=== PATIENT | female | born 1940 | race Caucasian/White ===

== ENCOUNTER 2018-08-20 15:02 | Inpatient (IN) | payer MEDICARE, BC ==
[~2018-08-20 15:02] MED LIST: Midazolam 1 MG/ML 2 ML SDV ONE; fentaNYL 100 MCG/2 ML SDV ONE
[2018-08-20] MEDS ORDERED: Lidocaine 1% with EPINEPHrine 1:100,000 20 ML MDV ONE (15:06)
[2018-08-20] MEDS ORDERED: fentaNYL 100 MCG/2 ML SDV IVPUSH ONE ×2 (15:32→15:34)
[2018-08-20] MEDS ORDERED: Midazolam 1 MG/ML 2 ML SDV IVPUSH ONE ×2 (15:32→15:34)
[2018-08-20] MEDS ORDERED: Lidocaine 1% with EPINEPHrine 1:100,000 20 ML MDV INJECT ONE (15:35)
[2018-08-20] MEDS ORDERED: Sodium Chloride 0.9% 1,000 ML IV ONE (15:35)
--- NOTE | 2018-08-20 16:02 | PCM.HP ---
H&P History of Present Illness - General Date of Service: 08/20/18 Source of Information: Patient, Provider - History of Present Illness Initial Comments - Free Text/Narative: Patient is a 78 y/o lady with metastatic colon cancer who was seen at the for PortACath placement. She was found to have a postoperative pneumothorax and was brought emergently to the [facility] emergency department. She reported some neck pain and some difficulty breathing. left chest Pain Score (Numeric/FACES): 4 - Related Data Allergies/Adverse Reactions: Allergies Allergy/AdvReac Type Severity Reaction Status Date / Time No Known Allergies Allergy Verified 08/20/18 15:18 Home Medications: Home Meds Cephalexin [Keflex] 0 mg PO ASDIRECTED 08/20/18 [History] Docusate Sodium 0 mg PO DAILY 08/20/18 [History] Levothyroxine [Synthroid] 0 mcg PO DAILY 08/20/18 [History] Losartan [Cozaar] 0 mg PO DAILY 08/20/18 [History] Past Medical History Cardiovascular History: Reports: Hypertension Other Respiratory History: past smoker, quit 12 years ago (22.5 year history) Gastrointestinal History: Reports: Other (See Below) Other Gastrointestinal History: colon cancer with mets to liver [employer] History: Reports: Endocrine/Metabolic History: Reports: Hypothyroidism Oncologic (Cancer) History: Reports: Colon, Liver, Metastatic - Past Surgical History Other Respiratory Surgeries/Procedures: pneumothorax GI Surgical History: Reports: Colonoscopy, Colostomy, Other (See Below) Other GI Surgeries/Procedures: laparotomy Social & Family History - Family History Cardiac: Reports: CAD Neurological: Reports: CVA Endocrine/Metabolic: Reports: Diabetes, Type I Oncologic: Reports: Bladder - Tobacco Use Smoking Status *Q: Former Smoker Used Tobacco, but Quit: No - Caffeine Use Caffeine Use: Reports: Coffee - Recreational Drug Use Recreational Drug Use: No H&P Review of Systems - Review of Systems: Review Of Systems: See Below General: Reports: No Symptoms HEENT: Reports: No Symptoms Pulmonary: Reports: Shortness of Breath Cardiovascular: Reports: No Symptoms Gastrointestinal: Reports: No Symptoms Genitourinary: Reports: No Symptoms Musculoskeletal: Reports: No Symptoms Skin: Reports: No Symptoms Psychiatric: Reports: No Symptoms Neurological: Reports: No Symptoms Exam - Exam Exam: See Below - Vital Signs Vital Signs: Last Vital Signs Temp 36.6 C 08/20/18 15:05 Pulse 107 H 08/20/18 15:30 Resp 31 H 08/20/18 15:30 BP 153/85 H 08/20/18 15:30 Pulse Ox 100 08/20/18 15:30 Weight: 58.003 kg - Exam Quality Assessment: Supplemental Oxygen General: Alert, Oriented HEENT: Conjunctiva Clear, EOMI Neck: Supple Lungs: Decreased Breath Sounds Cardiovascular: Regular Rate, Regular Rhythm GI/Abdominal Exam: Soft Extremities: Normal Inspection Neurological: Cranial Nerves Intact Neuro Extensive - Mental Status: Alert, Normal Mood/Affect *Q Meaningful Use (ADM) - VTE Risk Assess *Q Each Risk Factor Represents 1 Point: Minor Surgery Planned Total Score 1 Point Risk Factors: 1 Each Risk Factor Represents 3 Points: Age 75 Years or Greater Total Score 3 Point Risk Factors: 3 - Problem List (1) Pneumothorax on right SNOMED Code(s): 812775868 ICD Code: J93.9 - PNEUMOTHORAX, UNSPECIFIED Status: Acute Problem List Initiated/Reviewed/Updated: Yes Orders Last 24hrs: Active Orders 24 hr Category Date Time Status Chest 1V Frontal [CR] Stat Exams 08/20/18 15:32 Taken Sodium Chloride 0.9% [Normal Saline] 1,000 ml Med 08/20/18 15:35 Active IV ONETIME Medication Orders Sodium Chloride (Normal Saline) 1,000 mls @ 999 mls/hr IV ONETIME ONE Stop: 08/20/18 16:35 Last Admin: 08/20/18 15:52 Dose: 999 mls/hr Assessment/Plan Comment:: 78 y/o lady with iatrogenic pneumothorax after placement of PortACath. Right sided chest tube placed with good resolution of the pneumothorax - will admit for care of chest tube - IV dilaudid with norco and ibuprofen - regular diet - continue home medications - daily chest x-ray Radha John MD General surgery
--- NOTE | 2018-08-20 16:06 | PCM.OPNOTE ---
- General Post-Op/Procedure Note Date of Surgery/Procedure: 08/20/18 Operative Procedure(s): right tube thoracostomy Findings: large right pneumothorax Pre Op Diagnosis: right pneumothorax Post-Op Diagnosis: right pneumothorax Anesthesia Technique: Moderate Sedation Primary Surgeon: Radha John EBL in mLs: 30 Drain/Tube Comments:: right chest tube Complications: none apparent Condition: Good
[2018-08-20] MEDS ORDERED: Acetaminophen 325 MG Tab PO PRN (16:08)
[2018-08-20] MEDS ORDERED: Ondansetron 4 MG Tab.DIS PO PRN (16:08)
--- NOTE | 2018-08-20 16:22 | PCM.PRNOTE ---
- Free Text/Narrative Note: Date: 08/20/18 Procedure: right chest tube thoracostomy Pre-procedure diagnosis: right pneumothorax Post-procedure diagnosis: same Surgeon: Radha John MD Anesthesia: moderate sedation Blood loss: 30cc Indication: 78 y/o female with right iatrogenic pneumothorax. Risks of bleeding and infection explained, written consent obtained. Description: Moderate sedation was administered. The patient was prepped and draped in standard fashion. The area over the 5th approximate intercostal space was anesthetized with local 1% lidocaine with epinephrine. An incision was made and deepened to the level of the intercostal muscles. The pleural cavity was entered bluntly and confirmed with a kumar of air. A 28F chest tube was inserted and secured to the skin with a 0 silk suture. An occlusive dressing was applied. An immediate chest x-ray was done, confirming resolution of the pneumothorax with excellent positioning of the chest tube. The patient tolerated the procedure well. Radha John MD General Surgery
[2018-08-20] MEDS: HYDROmorphone 1 MG/ML Syringe IVPUSH PRN ×2 (16:35→20:05)
[2018-08-20] MEDS: Ibuprofen 600 MG Tab PO PRN (16:35)
--- NOTE | 2018-08-20 16:36 | CR ---
Chest: Frontal view of the chest was obtained. Comparison: No prior chest x-ray. Right sided chest tube is seen. Slight lucency is identified along the right lateral chest suspicious for small pneumothorax. Hiatal hernia is noted. Heart size is normal. Tortuous thoracic aorta is seen. Left-sided infusion port is seen. Mild right basilar atelectasis is noted. Bony structures are grossly intact. Impression: 1. Right-sided chest tube. 2. Findings suspicious for small right sided pneumothorax. 3. Other incidental findings. Diagnostic code #3
[2018-08-20] MEDS: Acetaminophen/HYDROcodone 325-5 MG Tab PO PRN (20:07)
[2018-08-20] MEDS: Docusate Sodium 100 MG Cap PO SCH (20:53)
[2018-08-20] MEDS: Heparin Sodium 5,000 Units/ML Vial SUBCUT SCH (20:59)
[2018-08-21] MEDS: Acetaminophen/HYDROcodone 325-5 MG Tab PO PRN ×4 (03:01→20:34)
[2018-08-21] MEDS: Ibuprofen 600 MG Tab PO PRN ×3 (03:02→23:02)
[2018-08-21] MEDS: HYDROmorphone 1 MG/ML Syringe IVPUSH PRN ×4 (03:03→18:01)
[2018-08-21] MEDS: Heparin Sodium 5,000 Units/ML Vial SUBCUT SCH ×3 (06:46→21:06)
[2018-08-21] MEDS: Levothyroxine 125 MCG Tab PO SCH (06:49)
[2018-08-21] MEDS: Losartan 25 MG Tab PO SCH (09:33)
[2018-08-21] MEDS: Docusate Sodium 100 MG Cap PO SCH ×2 (09:33→20:34)
--- NOTE | 2018-08-21 10:07 | CR ---
Chest: Portable view of the chest was obtained. Comparison: Prior chest x-ray of 08/20/18. Right-sided chest tube is seen. No definite pneumothorax is appreciated. Slight atelectasis is noted within the left base. Lungs otherwise are clear. Hiatal hernia is noted. Upper mediastinum within normal limits. Left-sided infusion port is seen. Pressure: 1. Right-sided chest tube. No definite pneumothorax. 2. Left basilar atelectasis and other incidental findings. Diagnostic code #3
--- NOTE | 2018-08-21 10:12 | PCM.SURGPN ---
- General Info Date of Service: 08/21/18 POD#: 1 Functional Status: Reports: Pain Controlled, Tolerating Diet - Patient Data Vitals - Most Recent: Last Vital Signs Temp 36.4 C 08/21/18 03:13 Pulse 96 08/21/18 07:51 Resp 16 08/21/18 03:13 BP 128/79 08/21/18 09:33 Pulse Ox 98 08/21/18 08:41 Weight - Most Recent: 60.146 kg I&O - Last 24 Hours: Intake & Output 08/20/18 08/21/18 08/21/18 22:59 06:59 14:59 Intake Total 240 900 Output Total 827 Balance 240 73 Lab Results Last 24 Hrs: Laboratory Results - last 24 hr 08/20/18 08/21/18 Range/Units 18:05 05:45 WBC 15.26 H 13.10 H (3.98-10.04) K/mm3 RBC 2.60 L 2.64 L (3.98-5.22) M/mm3 Hgb 7.9 L 8.0 L (11.2-15.7) gm/L Hct 25.3 L 26.1 L (34.1-44.9) % MCV 97.3 H 98.9 H (79.4-94.8) fl MCH 30.4 30.3 (25.6-32.2) pg MCHC 31.2 L 30.7 L (32.2-35.5) g/dl RDW Std Deviation 52.4 H 54.1 H (36.4-46.3) fL Plt Count 325 328 (182-369) K/mm3 MPV 10.6 11.3 (9.4-12.3) fl Neut % (Auto) 83.5 H 75.7 H (34.0-71.1) % Lymph % (Auto) 6.5 L 12.7 L (19.3-51.7) % [place] % (Auto) 9.6 11.1 (4.7-12.5) % Eos % (Auto) 0 L 0.1 L (0.7-5.8) Baso % (Auto) 0.2 0.2 (0.1-1.2) % Neut # (Auto) 12.75 H 9.92 H (1.56-6.13) K/mm3 Lymph # (Auto) 0.99 L 1.67 (1.18-3.74) K/mm3 [place] # (Auto) 1.46 H 1.45 H (0.24-0.36) K/mm3 Eos # (Auto) 0.00 L 0.01 L (0.04-0.36) K/mm3 Baso # (Auto) 0.03 0.02 (0.01-0.08) K/mm3 Manual Slide Review Abnormal smear Med Orders - Current: Current Medications Acetaminophen (Tylenol) 650 mg PO Q4H PRN PRN Reason: Pain (Mild 1-3)/fever Hydrocodone Bitart/Acetaminophen ([place] 325-5 Mg) 1 tab PO Q4H PRN PRN Reason: Pain (severe 7-10) Last Admin: 08/21/18 09:33 Dose: 1 tab Docusate Sodium (Colace) 100 mg PO BID [facility] Last Admin: 08/21/18 09:33 Dose: 100 mg Heparin Sodium (Porcine) (Heparin Sodium) 5,000 units SUBCUT Q8H [facility] Last Admin: 08/21/18 06:46 Dose: 5,000 units Hydromorphone HCl (Dilaudid) 0.25 mg IVPUSH Q2H PRN PRN Reason: Breakthrough Pain Last Admin: 08/21/18 09:34 Dose: 0.25 mg Ibuprofen (Motrin) 600 mg PO Q6H PRN PRN Reason: Pain (moderate 4-6) Last Admin: 08/21/18 03:02 Dose: 600 mg Levothyroxine Sodium (Levothyroxine) 125 mcg PO ACBREAKFAST [facility] Last Admin: 08/21/18 06:49 Dose: 125 mcg Losartan Potassium (Cozaar) 50 mg PO DAILY [facility] Last Admin: 08/21/18 09:33 Dose: 50 mg Ondansetron HCl (Zofran Odt) 4 mg PO Q6H PRN PRN Reason: nausea, able to take PO Last Admin: 08/20/18 16:35 Dose: 4 mg Discontinued Medications Fentanyl (Sublimaze) 25 mcg IVPUSH ONETIME ONE Stop: 08/20/18 15:33 Last Admin: 08/20/18 15:51 Dose: 25 mcg Fentanyl (Sublimaze) 25 mcg IVPUSH ONETIME ONE Stop: 08/20/18 15:35 Last Admin: 08/20/18 15:52 Dose: 25 mcg Fentanyl (Sublimaze) Confirm Administered Dose 100 mcg .ROUTE .STK-MED ONE Stop: 08/20/18 14:59 Last Admin: 08/21/18 07:54 Dose: Not Given Sodium Chloride (Normal Saline) 1,000 mls @ 999 mls/hr IV ONETIME ONE Stop: 08/20/18 16:35 Last Admin: 08/20/18 15:52 Dose: 999 mls/hr Lidocaine/Epinephrine (Xylocaine 1% With Epinephrine 1:100,000) Confirm Administered Dose 40 ml .ROUTE .STK-MED ONE Stop: 08/20/18 15:07 Last Admin: 08/20/18 15:53 Dose: Not Given Lidocaine/Epinephrine (Xylocaine 1% With Epinephrine 1:100,000) 20 ml INJECT ONETIME ONE Stop: 08/20/18 15:36 Last Admin: 08/20/18 15:53 Dose: 20 ml Midazolam HCl (Versed 1 Mg/Ml) 1 mg IVPUSH ONETIME ONE Stop: 08/20/18 15:33 Last Admin: 08/20/18 15:50 Dose: 1 mg Midazolam HCl (Versed 1 Mg/Ml) 1 mg IVPUSH ONETIME ONE Stop: 08/20/18 15:35 Last Admin: 08/20/18 15:51 Dose: 1 mg Midazolam HCl (Versed 1 Mg/Ml) Confirm Administered Dose 6 mg .ROUTE .STK-MED ONE Stop: 08/20/18 14:59 Last Admin: 08/21/18 07:54 Dose: Not Given - Exam Wound/Incisions: Dressing Dry and Intact Quality Assessment: Supplemental Oxygen HEENT: Pupils Equal, EOMI Lungs: Normal Respiratory Effort - Problem List & Annotations (1) Pneumothorax on right SNOMED Code(s): 734756837 Code(s): J93.9 - PNEUMOTHORAX, UNSPECIFIED Status: Acute Current Visit: No - Problem List Review Problem List Initiated/Reviewed/Updated: Yes - My Orders Last 24 Hours: Active Orders 24 hr Category Date Time Status Activity as Tolerated [RC] QSHIFT Care 08/21/18 03:32 Active Antiembolic Devices [RC] 09,21 Care 08/20/18 16:14 Active Incentive Breathing [RT Incentive Spirometry] [RC] Care 08/21/18 09:04 Active Q2HWA Intake and Output [RC] 04,16 Care 08/20/18 16:10 Active Oxygen Therapy [RC] PRN Care 08/20/18 16:08 Active VTE/DVT Education [RC] DAILY Care 08/20/18 16:08 Active Regular Diet [DIET] Diet 08/20/18 Dinner Active Chest 1V Frontal [CR] DAILY Exams 08/22/18 07:15 Ordered Chest 1V Frontal [CR] DAILY Exams 08/23/18 07:15 Ordered Chest 1V Frontal [CR] DAILY Exams 08/24/18 07:15 Ordered Chest 1V Frontal [CR] DAILY Exams 08/25/18 07:15 Ordered Acetaminophen [Tylenol] Med 08/20/18 16:08 Active 650 mg PO Q4H PRN Acetaminophen/HYDROcodone [Gypsy 325-5 MG] Med 08/20/18 16:08 Active 1 tab PO Q4H PRN Docusate Sodium [Colace] Med 08/20/18 21:00 Active 100 mg PO BID HYDROmorphone [Dilaudid] Med 08/20/18 16:08 Active 0.25 mg IVPUSH Q2H PRN Heparin Sodium Med 08/20/18 22:00 Active 5,000 units SUBCUT Q8H Ibuprofen [Motrin] Med 08/20/18 16:08 Active 600 mg PO Q6H PRN Levothyroxine Med 08/21/18 06:00 Active 125 mcg PO ACBREAKFAST Losartan [Cozaar] Med 08/21/18 09:00 Active 50 mg PO DAILY Ondansetron [Zofran ODT] Med 08/20/18 16:08 Active 4 mg PO Q6H PRN Sequential Compression Device [OM.PC] Per Unit Routine Oth 08/20/18 16:10 Ordered Resuscitation Status Routine Resus Stat 08/20/18 20:16 Ordered Medication Orders Acetaminophen (Tylenol) 650 mg PO Q4H PRN PRN Reason: Pain (Mild 1-3)/fever Hydrocodone Bitart/Acetaminophen ([place] 325-5 Mg) 1 tab PO Q4H PRN PRN Reason: Pain (severe 7-10) Last Admin: 08/21/18 09:33 Dose: 1 tab Admin: 08/21/18 03:01 Dose: 1 tab Admin: 08/20/18 20:07 Dose: 1 tab Docusate Sodium (Colace) 100 mg PO BID [facility] Last Admin: 08/21/18 09:33 Dose: 100 mg Admin: 08/20/18 20:53 Dose: 100 mg Heparin Sodium (Porcine) (Heparin Sodium) 5,000 units SUBCUT Q8H [facility] Last Admin: 08/21/18 06:46 Dose: 5,000 units Admin: 08/20/18 20:59 Dose: 5,000 units Hydromorphone HCl (Dilaudid) 0.25 mg IVPUSH Q2H PRN PRN Reason: Breakthrough Pain Last Admin: 08/21/18 09:34 Dose: 0.25 mg Admin: 08/21/18 03:03 Dose: 0.25 mg Admin: 08/20/18 20:05 Dose: 0.25 mg Admin: 08/20/18 16:35 Dose: 0.25 mg Ibuprofen (Motrin) 600 mg PO Q6H PRN PRN Reason: Pain (moderate 4-6) Last Admin: 08/21/18 03:02 Dose: 600 mg Admin: 08/20/18 16:35 Dose: 600 mg Levothyroxine Sodium (Levothyroxine) 125 mcg PO ACBREAKFAST [facility] Last Admin: 08/21/18 06:49 Dose: 125 mcg Losartan Potassium (Cozaar) 50 mg PO DAILY [facility] Last Admin: 08/21/18 09:33 Dose: 50 mg Ondansetron HCl (Zofran Odt) 4 mg PO Q6H PRN PRN Reason: nausea, able to take PO Last Admin: 08/20/18 16:35 Dose: 4 mg - Assessment Assessment (Free Text/Narrative):: 78 y/o lady with iatrogenic pneumothorax. continued intermittent air leak - Plan Plan (Free Text/Narrative):: - continue current pain regimen - encourage good pulmonary hygiene with deep breathing and coughing. Will give incentive spirometer - regular diet - continue home medications - daily chest x-ray Radha John MD General surgery
[2018-08-22] MEDS: Levothyroxine 125 MCG Tab PO SCH (05:07)
[2018-08-22] MEDS: Acetaminophen/HYDROcodone 325-5 MG Tab PO PRN ×2 (05:07→21:12)
[2018-08-22] MEDS: Heparin Sodium 5,000 Units/ML Vial SUBCUT SCH ×3 (05:08→21:12)
[2018-08-22] MEDS: Losartan 25 MG Tab PO SCH (08:33)
[2018-08-22] MEDS: Ibuprofen 600 MG Tab PO PRN ×2 (08:34→15:15)
[2018-08-22] MEDS: Docusate Sodium 100 MG Cap PO SCH ×2 (08:35→21:12)
--- NOTE | 2018-08-22 09:43 | CR ---
Chest: Portable view of the chest was obtained. Comparison: Prior chest x-ray of 08/21/18. Right-sided chest tube is again noted. No definite pneumothorax is seen. Left-sided infusion port is seen. Heart size appears within normal limits for portable technique. Scattered areas of atelectasis are seen within both sides of the chest. Hiatal hernia is noted causing increased density behind the heart. Bony structures are grossly intact. Impression: 1. Scattered areas of atelectasis within both lungs. 2. Right-sided chest tube with no pneumothorax being seen. 3. Other incidental findings. Diagnostic code #3
[2018-08-22] MEDS ORDERED: Polyethylene Glycol 3350 Powder 17 GM Packet PO PRN (10:27)
--- NOTE | 2018-08-22 10:32 | PCM.SURGPN ---
- General Info Date of Service: 08/22/18 Functional Status: Reports: Pain Controlled, Tolerating Diet, Ambulating, Incentive Spirometry, Other (reports less stool output in ostomy) - Patient Data Vitals - Most Recent: Last Vital Signs Temp 36.6 C 08/22/18 07:49 Pulse 87 08/22/18 08:29 Resp 16 08/22/18 07:49 BP 128/71 08/22/18 08:33 Pulse Ox 92 L 08/22/18 08:29 Weight - Most Recent: 60.963 kg I&O - Last 24 Hours: Intake & Output 08/21/18 08/22/18 08/22/18 22:59 06:59 14:59 Intake Total 1000 350 Output Total 900 715 Balance 100 -365 Med Orders - Current: Current Medications Acetaminophen (Tylenol) 650 mg PO Q4H PRN PRN Reason: Pain (Mild 1-3)/fever Hydrocodone Bitart/Acetaminophen ([place] 325-5 Mg) 1 tab PO Q4H PRN PRN Reason: Pain (severe 7-10) Last Admin: 08/22/18 05:07 Dose: 1 tab Docusate Sodium (Colace) 100 mg PO BID [facility] Last Admin: 08/22/18 08:35 Dose: 100 mg Heparin Sodium (Porcine) (Heparin Sodium) 5,000 units SUBCUT Q8H [facility] Last Admin: 08/22/18 05:08 Dose: 5,000 units Hydromorphone HCl (Dilaudid) 0.25 mg IVPUSH Q2H PRN PRN Reason: Breakthrough Pain Last Admin: 08/21/18 18:01 Dose: 0.25 mg Ibuprofen (Motrin) 600 mg PO Q6H PRN PRN Reason: Pain (moderate 4-6) Last Admin: 08/22/18 08:34 Dose: 600 mg Levothyroxine Sodium (Levothyroxine) 125 mcg PO ACBREAKFAST [facility] Last Admin: 08/22/18 05:07 Dose: 125 mcg Losartan Potassium (Cozaar) 50 mg PO DAILY [facility] Last Admin: 08/22/18 08:33 Dose: 50 mg Ondansetron HCl (Zofran Odt) 4 mg PO Q6H PRN PRN Reason: nausea, able to take PO Last Admin: 08/20/18 16:35 Dose: 4 mg Discontinued Medications Fentanyl (Sublimaze) 25 mcg IVPUSH ONETIME ONE Stop: 08/20/18 15:33 Last Admin: 08/20/18 15:51 Dose: 25 mcg Fentanyl (Sublimaze) 25 mcg IVPUSH ONETIME ONE Stop: 08/20/18 15:35 Last Admin: 08/20/18 15:52 Dose: 25 mcg Fentanyl (Sublimaze) Confirm Administered Dose 100 mcg .ROUTE .STK-MED ONE Stop: 08/20/18 14:59 Last Admin: 08/21/18 07:54 Dose: Not Given Sodium Chloride (Normal Saline) 1,000 mls @ 999 mls/hr IV ONETIME ONE Stop: 08/20/18 16:35 Last Admin: 08/20/18 15:52 Dose: 999 mls/hr Lidocaine/Epinephrine (Xylocaine 1% With Epinephrine 1:100,000) Confirm Administered Dose 40 ml .ROUTE .STK-MED ONE Stop: 08/20/18 15:07 Last Admin: 08/20/18 15:53 Dose: Not Given Lidocaine/Epinephrine (Xylocaine 1% With Epinephrine 1:100,000) 20 ml INJECT ONETIME ONE Stop: 08/20/18 15:36 Last Admin: 08/20/18 15:53 Dose: 20 ml Midazolam HCl (Versed 1 Mg/Ml) 1 mg IVPUSH ONETIME ONE Stop: 08/20/18 15:33 Last Admin: 08/20/18 15:50 Dose: 1 mg Midazolam HCl (Versed 1 Mg/Ml) 1 mg IVPUSH ONETIME ONE Stop: 08/20/18 15:35 Last Admin: 08/20/18 15:51 Dose: 1 mg Midazolam HCl (Versed 1 Mg/Ml) Confirm Administered Dose 6 mg .ROUTE .STK-MED ONE Stop: 08/20/18 14:59 Last Admin: 08/21/18 07:54 Dose: Not Given - Exam Wound/Incisions: Dressing Dry and Intact, No Drainage General: Alert, Oriented Neck: Supple Lungs: Normal Respiratory Effort, Other (chest tube with minimal drainage, intermittent air leak) - Problem List & Annotations (1) Pneumothorax on right SNOMED Code(s): 865514872 Code(s): J93.9 - PNEUMOTHORAX, UNSPECIFIED Status: Acute Current Visit: No - Problem List Review Problem List Initiated/Reviewed/Updated: Yes - My Orders Last 24 Hours: Active Orders 24 hr Category Date Time Status Chest Tube Management [RC] ASDIRECTED Care 08/22/18 10:27 Ordered Communication Order [RC] DAILY Care 08/21/18 15:34 Active Chest 1V Frontal [CR] DAILY Exams 08/23/18 07:15 Ordered Chest 1V Frontal [CR] DAILY Exams 08/24/18 07:15 Ordered Chest 1V Frontal [CR] DAILY Exams 08/25/18 07:15 Ordered CBC WITH AUTO DIFF [HEME] AM Lab 08/23/18 05:11 Ordered Polyethylene Glycol 3350 [MiraLAX] Med 08/22/18 10:27 Ordered 17 gm PO BEDTIME PRN Medication Orders Acetaminophen (Tylenol) 650 mg PO Q4H PRN PRN Reason: Pain (Mild 1-3)/fever Hydrocodone Bitart/Acetaminophen ([place] 325-5 Mg) 1 tab PO Q4H PRN PRN Reason: Pain (severe 7-10) Last Admin: 08/22/18 05:07 Dose: 1 tab Admin: 08/21/18 20:34 Dose: 1 tab Admin: 08/21/18 15:07 Dose: 1 tab Admin: 08/21/18 09:33 Dose: 1 tab Admin: 08/21/18 03:01 Dose: 1 tab Admin: 08/20/18 20:07 Dose: 1 tab Docusate Sodium (Colace) 100 mg PO BID [facility] Last Admin: 08/22/18 08:35 Dose: 100 mg Admin: 08/21/18 20:34 Dose: 100 mg Admin: 08/21/18 09:33 Dose: 100 mg Admin: 08/20/18 20:53 Dose: 100 mg Heparin Sodium (Porcine) (Heparin Sodium) 5,000 units SUBCUT Q8H [facility] Last Admin: 08/22/18 05:08 Dose: 5,000 units Admin: 08/21/18 21:06 Dose: 5,000 units Admin: 08/21/18 15:07 Dose: 5,000 units Admin: 08/21/18 06:46 Dose: 5,000 units Admin: 08/20/18 20:59 Dose: 5,000 units Hydromorphone HCl (Dilaudid) 0.25 mg IVPUSH Q2H PRN PRN Reason: Breakthrough Pain Last Admin: 08/21/18 18:01 Dose: 0.25 mg Admin: 08/21/18 15:07 Dose: 0.25 mg Admin: 08/21/18 09:34 Dose: 0.25 mg Admin: 08/21/18 03:03 Dose: 0.25 mg Admin: 08/20/18 20:05 Dose: 0.25 mg Admin: 08/20/18 16:35 Dose: 0.25 mg Ibuprofen (Motrin) 600 mg PO Q6H PRN PRN Reason: Pain (moderate 4-6) Last Admin: 08/22/18 08:34 Dose: 600 mg Admin: 08/21/18 23:02 Dose: 600 mg Admin: 08/21/18 18:00 Dose: 600 mg Admin: 08/21/18 03:02 Dose: 600 mg Admin: 08/20/18 16:35 Dose: 600 mg Levothyroxine Sodium (Levothyroxine) 125 mcg PO ACBREAKFAST [facility] Last Admin: 08/22/18 05:07 Dose: 125 mcg Admin: 08/21/18 06:49 Dose: 125 mcg Losartan Potassium (Cozaar) 50 mg PO DAILY [facility] Last Admin: 08/22/18 08:33 Dose: 50 mg Admin: 08/21/18 09:33 Dose: 50 mg Ondansetron HCl (Zofran Odt) 4 mg PO Q6H PRN PRN Reason: nausea, able to take PO Last Admin: 08/20/18 16:35 Dose: 4 mg - Assessment Assessment (Free Text/Narrative):: 78 y/o lady with iatrogenic pneumothorax, doing well. - Plan Plan (Free Text/Narrative):: - continue daily chest x-ray - will check CBC for hg level - encourage ambulation and incentive spirometry - may give miralax PRN for increased constipation symptoms - continue chest tube to suction until air leak resolves Radha John MD General surgery
[2018-08-23] MEDS: Heparin Sodium 5,000 Units/ML Vial SUBCUT SCH ×3 (06:48→21:19)
[2018-08-23] MEDS: Acetaminophen/HYDROcodone 325-5 MG Tab PO PRN ×3 (06:49→19:35)
[2018-08-23] MEDS: Levothyroxine 125 MCG Tab PO SCH (06:49)
[2018-08-23] MEDS: Losartan 25 MG Tab PO SCH (08:07)
[2018-08-23] MEDS: Docusate Sodium 100 MG Cap PO SCH ×2 (08:08→21:20)
--- NOTE | 2018-08-23 08:12 | CR ---
Chest: Portable view of the chest was obtained. Comparison: Previous chest x-ray of 08/22/18. Slight atelectasis is seen within both lung bases. Minimal atelectasis is seen within left midlung. Right sided chest tube is seen. No pneumothorax is seen. Left-sided infusion port is noted. Bony structures are osteopenic. Mild scoliosis is noted. Hiatal hernia is noted. Impression: 1. Mild areas of atelectasis. Right-sided chest tube. No pneumothorax is seen. No acute abnormality is seen. Diagnostic code #3
[2018-08-23] MEDS: Ibuprofen 600 MG Tab PO PRN ×3 (09:44→23:53)
--- NOTE | 2018-08-23 09:52 | PCM.SURGPN ---
- General Info Date of Service: 08/23/18 Functional Status: Reports: Pain Controlled, Tolerating Diet - Patient Data Vitals - Most Recent: Last Vital Signs Temp 37.0 C 08/23/18 07:43 Pulse 96 08/23/18 07:43 Resp 12 08/23/18 07:43 BP 130/92 H 08/23/18 08:07 Pulse Ox 97 08/23/18 07:43 Weight - Most Recent: 60.736 kg I&O - Last 24 Hours: Intake & Output 08/22/18 08/23/18 08/23/18 22:59 06:59 14:59 Intake Total 1480 1200 Output Total 570 900 Balance 910 300 Lab Results Last 24 Hrs: Laboratory Results - last 24 hr 08/22/18 08/23/18 Range/Units 16:09 05:53 WBC 11.87 H 13.53 H (3.98-10.04) K/mm3 RBC 2.71 L 2.67 L (3.98-5.22) M/mm3 Hgb 8.1 L 8.0 L (11.2-15.7) gm/L Hct 26.8 L 26.0 L (34.1-44.9) % MCV 98.9 H 97.4 H (79.4-94.8) fl MCH 29.9 30.0 (25.6-32.2) pg MCHC 30.2 L 30.8 L (32.2-35.5) g/dl RDW Std Deviation 54.2 H 52.9 H (36.4-46.3) fL Plt Count 339 347 (182-369) K/mm3 MPV 10.6 11.0 (9.4-12.3) fl Neut % (Auto) 73.5 H 78.7 H (34.0-71.1) % Lymph % (Auto) 13.2 L 10.4 L (19.3-51.7) % [place] % (Auto) 12.6 H 10.4 (4.7-12.5) % Eos % (Auto) 0.3 L 0.2 L (0.7-5.8) Baso % (Auto) 0.2 0.1 (0.1-1.2) % Neut # (Auto) 8.74 H 10.64 H (1.56-6.13) K/mm3 Lymph # (Auto) 1.57 1.41 (1.18-3.74) K/mm3 [place] # (Auto) 1.49 H 1.41 H (0.24-0.36) K/mm3 Eos # (Auto) 0.03 L 0.03 L (0.04-0.36) K/mm3 Baso # (Auto) 0.02 0.01 (0.01-0.08) K/mm3 Med Orders - Current: Current Medications Acetaminophen (Tylenol) 650 mg PO Q4H PRN PRN Reason: Pain (Mild 1-3)/fever Hydrocodone Bitart/Acetaminophen ([place] 325-5 Mg) 1 tab PO Q4H PRN PRN Reason: Pain (severe 7-10) Last Admin: 08/23/18 06:49 Dose: 1 tab Docusate Sodium (Colace) 100 mg PO BID [facility] Last Admin: 08/23/18 08:08 Dose: 100 mg Heparin Sodium (Porcine) (Heparin Sodium) 5,000 units SUBCUT Q8H [facility] Last Admin: 08/23/18 06:48 Dose: 5,000 units Hydromorphone HCl (Dilaudid) 0.25 mg IVPUSH Q2H PRN PRN Reason: Breakthrough Pain Last Admin: 08/21/18 18:01 Dose: 0.25 mg Ibuprofen (Motrin) 600 mg PO Q6H PRN PRN Reason: Pain (moderate 4-6) Last Admin: 08/23/18 09:44 Dose: 600 mg Levothyroxine Sodium (Levothyroxine) 125 mcg PO ACBREAKFAST [facility] Last Admin: 08/23/18 06:49 Dose: 125 mcg Losartan Potassium (Cozaar) 50 mg PO DAILY [facility] Last Admin: 08/23/18 08:07 Dose: 50 mg Ondansetron HCl (Zofran Odt) 4 mg PO Q6H PRN PRN Reason: nausea, able to take PO Last Admin: 08/20/18 16:35 Dose: 4 mg Polyethylene Glycol (Miralax) 17 gm PO BEDTIME PRN PRN Reason: Constipation Last Admin: 08/22/18 15:15 Dose: 17 gm Discontinued Medications Fentanyl (Sublimaze) 25 mcg IVPUSH ONETIME ONE Stop: 08/20/18 15:33 Last Admin: 08/20/18 15:51 Dose: 25 mcg Fentanyl (Sublimaze) 25 mcg IVPUSH ONETIME ONE Stop: 08/20/18 15:35 Last Admin: 08/20/18 15:52 Dose: 25 mcg Fentanyl (Sublimaze) Confirm Administered Dose 100 mcg .ROUTE .STK-MED ONE Stop: 08/20/18 14:59 Last Admin: 08/21/18 07:54 Dose: Not Given Sodium Chloride (Normal Saline) 1,000 mls @ 999 mls/hr IV ONETIME ONE Stop: 08/20/18 16:35 Last Admin: 08/20/18 15:52 Dose: 999 mls/hr Lidocaine/Epinephrine (Xylocaine 1% With Epinephrine 1:100,000) Confirm Administered Dose 40 ml .ROUTE .STK-MED ONE Stop: 08/20/18 15:07 Last Admin: 08/20/18 15:53 Dose: Not Given Lidocaine/Epinephrine (Xylocaine 1% With Epinephrine 1:100,000) 20 ml INJECT ONETIME ONE Stop: 08/20/18 15:36 Last Admin: 08/20/18 15:53 Dose: 20 ml Midazolam HCl (Versed 1 Mg/Ml) 1 mg IVPUSH ONETIME ONE Stop: 08/20/18 15:33 Last Admin: 08/20/18 15:50 Dose: 1 mg Midazolam HCl (Versed 1 Mg/Ml) 1 mg IVPUSH ONETIME ONE Stop: 08/20/18 15:35 Last Admin: 08/20/18 15:51 Dose: 1 mg Midazolam HCl (Versed 1 Mg/Ml) Confirm Administered Dose 6 mg .ROUTE .STK-MED ONE Stop: 08/20/18 14:59 Last Admin: 08/21/18 07:54 Dose: Not Given - Exam Wound/Incisions: Healing Well, Dressing Dry and Intact General: Alert Neck: Supple Lungs: Normal Respiratory Effort, Other (Chest tube in place with minimal SS drainage, air leak resolved) - Problem List & Annotations (1) Pneumothorax on right SNOMED Code(s): 886352052 Code(s): J93.9 - PNEUMOTHORAX, UNSPECIFIED Status: Acute Current Visit: No - Problem List Review Problem List Initiated/Reviewed/Updated: Yes - My Orders Last 24 Hours: Active Orders 24 hr Category Date Time Status Chest Tube Management [RC] 10,16,22,04 Care 08/22/18 10:27 Active Chest 1V Frontal [CR] DAILY Exams 08/24/18 07:15 Ordered Chest 1V Frontal [CR] DAILY Exams 08/25/18 07:15 Ordered Chest 1V Frontal [CR] Routine Exams 08/23/18 14:30 Ordered Polyethylene Glycol 3350 [MiraLAX] Med 08/22/18 10:27 Active 17 gm PO BEDTIME PRN Medication Orders Acetaminophen (Tylenol) 650 mg PO Q4H PRN PRN Reason: Pain (Mild 1-3)/fever Hydrocodone Bitart/Acetaminophen ([place] 325-5 Mg) 1 tab PO Q4H PRN PRN Reason: Pain (severe 7-10) Last Admin: 08/23/18 06:49 Dose: 1 tab Admin: 08/22/18 21:12 Dose: 1 tab Admin: 08/22/18 05:07 Dose: 1 tab Admin: 08/21/18 20:34 Dose: 1 tab Admin: 08/21/18 15:07 Dose: 1 tab Admin: 08/21/18 09:33 Dose: 1 tab Admin: 08/21/18 03:01 Dose: 1 tab Admin: 08/20/18 20:07 Dose: 1 tab Docusate Sodium (Colace) 100 mg PO BID [facility] Last Admin: 08/23/18 08:08 Dose: 100 mg Admin: 08/22/18 21:12 Dose: 100 mg Admin: 08/22/18 08:35 Dose: 100 mg Admin: 08/21/18 20:34 Dose: 100 mg Admin: 08/21/18 09:33 Dose: 100 mg Admin: 08/20/18 20:53 Dose: 100 mg Heparin Sodium (Porcine) (Heparin Sodium) 5,000 units SUBCUT Q8H [facility] Last Admin: 08/23/18 06:48 Dose: 5,000 units Admin: 08/22/18 21:12 Dose: 5,000 units Admin: 08/22/18 15:04 Dose: 5,000 units Admin: 08/22/18 05:08 Dose: 5,000 units Admin: 08/21/18 21:06 Dose: 5,000 units Admin: 08/21/18 15:07 Dose: 5,000 units Admin: 08/21/18 06:46 Dose: 5,000 units Admin: 08/20/18 20:59 Dose: 5,000 units Hydromorphone HCl (Dilaudid) 0.25 mg IVPUSH Q2H PRN PRN Reason: Breakthrough Pain Last Admin: 08/21/18 18:01 Dose: 0.25 mg Admin: 08/21/18 15:07 Dose: 0.25 mg Admin: 08/21/18 09:34 Dose: 0.25 mg Admin: 08/21/18 03:03 Dose: 0.25 mg Admin: 08/20/18 20:05 Dose: 0.25 mg Admin: 08/20/18 16:35 Dose: 0.25 mg Ibuprofen (Motrin) 600 mg PO Q6H PRN PRN Reason: Pain (moderate 4-6) Last Admin: 08/23/18 09:44 Dose: 600 mg Admin: 08/22/18 15:15 Dose: 600 mg Admin: 08/22/18 08:34 Dose: 600 mg Admin: 08/21/18 23:02 Dose: 600 mg Admin: 08/21/18 18:00 Dose: 600 mg Admin: 08/21/18 03:02 Dose: 600 mg Admin: 08/20/18 16:35 Dose: 600 mg Levothyroxine Sodium (Levothyroxine) 125 mcg PO ACBREAKFAST [facility] Last Admin: 08/23/18 06:49 Dose: 125 mcg Admin: 08/22/18 05:07 Dose: 125 mcg Admin: 08/21/18 06:49 Dose: 125 mcg Losartan Potassium (Cozaar) 50 mg PO DAILY [facility] Last Admin: 08/23/18 08:07 Dose: 50 mg Admin: 08/22/18 08:33 Dose: 50 mg Admin: 08/21/18 09:33 Dose: 50 mg Ondansetron HCl (Zofran Odt) 4 mg PO Q6H PRN PRN Reason: nausea, able to take PO Last Admin: 08/20/18 16:35 Dose: 4 mg Polyethylene Glycol (Miralax) 17 gm PO BEDTIME PRN PRN Reason: Constipation Last Admin: 08/22/18 15:15 Dose: 17 gm - Assessment Assessment (Free Text/Narrative):: 78 y/o lady with iatrogenic pneumothorax, improved today. Chest x-ray without evidence of pneumothorax - Plan Plan (Free Text/Narrative):: - Will check chest x-ray at 1430 to evaluate for pneumothorax on waterseal - continue incentive spirometer - will monitor for signs of fever or infection that would prompt further workup of the increased WBC, no further intervention or investigation at this time - continue current pain regimen - continue regular diet Radha John MD General Surgery
--- NOTE | 2018-08-23 15:07 | CR ---
Chest: Portable view of the chest was obtained. Comparison: Prior chest x-ray performed earlier in same day (0 7:34 AM). Right sided chest tube is seen. Very minimal apical pneumothorax is seen. Left-sided infusion catheter is seen. Atelectasis is noted within both lung bases. Hiatal hernia is noted. 2 nodules are now seen within the right mid to lower lung which were likely present on recent studies but currently seen due to differences in technique. Bony structures are grossly intact. Impression: 1. Right-sided chest tube with small apical pneumothorax. 2. Atelectasis within both lung bases. 3. 2 small nodules within the right mid to lower lung, when patient's condition permits, recommend CT to further evaluate. Diagnostic code #3
[2018-08-23] MEDS ORDERED: Lidocaine 1% 50 ML MDV ONE (21:42)
[2018-08-24] MEDS: Acetaminophen/HYDROcodone 325-5 MG Tab PO PRN (03:36)
[2018-08-24] MEDS: Levothyroxine 125 MCG Tab PO SCH (06:38)
[2018-08-24] MEDS: Heparin Sodium 5,000 Units/ML Vial SUBCUT SCH (06:38)
[2018-08-24] MEDS: Ibuprofen 600 MG Tab PO PRN (06:39)
--- NOTE | 2018-08-24 08:38 | CR ---
Chest: Portable view of the chest was obtained. Comparison: Prior chest x-ray of 08/23/18. Right-sided chest tube is seen. Very minimal right apical pneumothorax is suspected. This is less well seen on current exam and has not enlarged from previous study. Stable nodules within the right lung base are seen. Slight atelectasis is seen within both lung bases. Left-sided infusion port is seen. Impression: 1. Minimal right apical pneumothorax seen on prior chest x-ray is poorly seen on current exam and has not enlarged in the time period from previous chest x-ray. 2. Right-sided chest tube. 3. Other incidental findings. Diagnostic code #3
--- NOTE | 2018-08-24 08:40 | PCM.SURGPN ---
- General Info Date of Service: 08/24/18 Functional Status: Reports: Pain Controlled, Ambulating, Urinating, Incentive Spirometry - Patient Data Vitals - Most Recent: Last Vital Signs Temp 36.5 C 08/24/18 03:38 Pulse 82 08/24/18 03:38 Resp 18 08/24/18 03:38 BP 143/89 H 08/24/18 03:38 Pulse Ox 93 L 08/24/18 03:38 Weight - Most Recent: 60.827 kg I&O - Last 24 Hours: Intake & Output 08/23/18 08/24/18 08/24/18 22:59 06:59 14:59 Intake Total 1280 500 Output Total 1351 1000 Balance -71 -500 Lab Results Last 24 Hrs: Laboratory Results - last 24 hr 08/24/18 Range/Units 05:05 WBC 9.75 (3.98-10.04) K/mm3 RBC 2.73 L (3.98-5.22) M/mm3 Hgb 8.2 L (11.2-15.7) gm/L Hct 26.5 L (34.1-44.9) % MCV 97.1 H (79.4-94.8) fl MCH 30.0 (25.6-32.2) pg MCHC 30.9 L (32.2-35.5) g/dl RDW Std Deviation 52.3 H (36.4-46.3) fL Plt Count 391 H (182-369) K/mm3 MPV 10.9 (9.4-12.3) fl Neut % (Auto) 66.3 (34.0-71.1) % Lymph % (Auto) 21.3 (19.3-51.7) % [place] % (Auto) 11.9 (4.7-12.5) % Eos % (Auto) 0.2 L (0.7-5.8) Baso % (Auto) 0.2 (0.1-1.2) % Neut # (Auto) 6.46 H (1.56-6.13) K/mm3 Lymph # (Auto) 2.08 (1.18-3.74) K/mm3 [place] # (Auto) 1.16 H (0.24-0.36) K/mm3 Eos # (Auto) 0.02 L (0.04-0.36) K/mm3 Baso # (Auto) 0.02 (0.01-0.08) K/mm3 Med Orders - Current: Current Medications Acetaminophen (Tylenol) 650 mg PO Q4H PRN PRN Reason: Pain (Mild 1-3)/fever Hydrocodone Bitart/Acetaminophen ([place] 325-5 Mg) 1 tab PO Q4H PRN PRN Reason: Pain (severe 7-10) Last Admin: 08/24/18 03:36 Dose: 1 tab Docusate Sodium (Colace) 100 mg PO BID [facility] Last Admin: 08/23/18 21:20 Dose: 100 mg Heparin Sodium (Porcine) (Heparin Sodium) 5,000 units SUBCUT Q8H [facility] Last Admin: 08/24/18 06:38 Dose: 5,000 units Hydromorphone HCl (Dilaudid) 0.25 mg IVPUSH Q2H PRN PRN Reason: Breakthrough Pain Last Admin: 08/21/18 18:01 Dose: 0.25 mg Ibuprofen (Motrin) 600 mg PO Q6H PRN PRN Reason: Pain (moderate 4-6) Last Admin: 08/24/18 06:39 Dose: 600 mg Levothyroxine Sodium (Levothyroxine) 125 mcg PO ACBREAKFAST [facility] Last Admin: 08/24/18 06:38 Dose: 125 mcg Losartan Potassium (Cozaar) 50 mg PO DAILY [facility] Last Admin: 08/23/18 08:07 Dose: 50 mg Ondansetron HCl (Zofran Odt) 4 mg PO Q6H PRN PRN Reason: nausea, able to take PO Last Admin: 08/20/18 16:35 Dose: 4 mg Polyethylene Glycol (Miralax) 17 gm PO BEDTIME PRN PRN Reason: Constipation Last Admin: 08/22/18 15:15 Dose: 17 gm Discontinued Medications Fentanyl (Sublimaze) 25 mcg IVPUSH ONETIME ONE Stop: 08/20/18 15:33 Last Admin: 08/20/18 15:51 Dose: 25 mcg Fentanyl (Sublimaze) 25 mcg IVPUSH ONETIME ONE Stop: 08/20/18 15:35 Last Admin: 08/20/18 15:52 Dose: 25 mcg Fentanyl (Sublimaze) Confirm Administered Dose 100 mcg .ROUTE .STK-MED ONE Stop: 08/20/18 14:59 Last Admin: 08/21/18 07:54 Dose: Not Given Sodium Chloride (Normal Saline) 1,000 mls @ 999 mls/hr IV ONETIME ONE Stop: 08/20/18 16:35 Last Admin: 08/20/18 15:52 Dose: 999 mls/hr Lidocaine HCl (Xylocaine 1%) Confirm Administered Dose 50 ml .ROUTE .STK-MED ONE Stop: 08/23/18 21:43 Last Admin: 08/23/18 22:14 Dose: Not Given Lidocaine/Epinephrine (Xylocaine 1% With Epinephrine 1:100,000) Confirm Administered Dose 40 ml .ROUTE .STK-MED ONE Stop: 08/20/18 15:07 Last Admin: 08/20/18 15:53 Dose: Not Given Lidocaine/Epinephrine (Xylocaine 1% With Epinephrine 1:100,000) 20 ml INJECT ONETIME ONE Stop: 08/20/18 15:36 Last Admin: 08/20/18 15:53 Dose: 20 ml Midazolam HCl (Versed 1 Mg/Ml) 1 mg IVPUSH ONETIME ONE Stop: 08/20/18 15:33 Last Admin: 08/20/18 15:50 Dose: 1 mg Midazolam HCl (Versed 1 Mg/Ml) 1 mg IVPUSH ONETIME ONE Stop: 08/20/18 15:35 Last Admin: 08/20/18 15:51 Dose: 1 mg Midazolam HCl (Versed 1 Mg/Ml) Confirm Administered Dose 6 mg .ROUTE .STK-MED ONE Stop: 08/20/18 14:59 Last Admin: 08/21/18 07:54 Dose: Not Given - Exam Wound/Incisions: Healing Well, Dressing Dry and Intact Lungs: Normal Respiratory Effort, Other (chest tube with no air leak, chest tube removed) - Problem List & Annotations (1) Pneumothorax on right SNOMED Code(s): 758012747 Code(s): J93.9 - PNEUMOTHORAX, UNSPECIFIED Status: Acute Current Visit: No - Problem List Review Problem List Initiated/Reviewed/Updated: No - My Orders Last 24 Hours: Active Orders 24 hr Category Date Time Status Chest 1V Frontal [CR] DAILY Exams 08/24/18 07:15 Taken Chest 1V Frontal [CR] DAILY Exams 08/25/18 07:15 Ordered Chest 1V Frontal [CR] Stat Exams 08/24/18 08:27 Ordered Medication Orders Acetaminophen (Tylenol) 650 mg PO Q4H PRN PRN Reason: Pain (Mild 1-3)/fever Hydrocodone Bitart/Acetaminophen ([place] 325-5 Mg) 1 tab PO Q4H PRN PRN Reason: Pain (severe 7-10) Last Admin: 08/24/18 03:36 Dose: 1 tab Admin: 08/23/18 19:35 Dose: 1 tab Admin: 08/23/18 10:57 Dose: 1 tab Admin: 08/23/18 06:49 Dose: 1 tab Admin: 08/22/18 21:12 Dose: 1 tab Admin: 08/22/18 05:07 Dose: 1 tab Admin: 08/21/18 20:34 Dose: 1 tab Admin: 08/21/18 15:07 Dose: 1 tab Admin: 08/21/18 09:33 Dose: 1 tab Admin: 08/21/18 03:01 Dose: 1 tab Admin: 08/20/18 20:07 Dose: 1 tab Docusate Sodium (Colace) 100 mg PO BID [facility] Last Admin: 08/23/18 21:20 Dose: 100 mg Admin: 08/23/18 08:08 Dose: 100 mg Admin: 08/22/18 21:12 Dose: 100 mg Admin: 08/22/18 08:35 Dose: 100 mg Admin: 08/21/18 20:34 Dose: 100 mg Admin: 08/21/18 09:33 Dose: 100 mg Admin: 08/20/18 20:53 Dose: 100 mg Heparin Sodium (Porcine) (Heparin Sodium) 5,000 units SUBCUT Q8H [facility] Last Admin: 08/24/18 06:38 Dose: 5,000 units Admin: 08/23/18 21:19 Dose: 5,000 units Admin: 08/23/18 14:48 Dose: 5,000 units Admin: 08/23/18 06:48 Dose: 5,000 units Admin: 08/22/18 21:12 Dose: 5,000 units Admin: 08/22/18 15:04 Dose: 5,000 units Admin: 08/22/18 05:08 Dose: 5,000 units Admin: 08/21/18 21:06 Dose: 5,000 units Admin: 08/21/18 15:07 Dose: 5,000 units Admin: 08/21/18 06:46 Dose: 5,000 units Admin: 08/20/18 20:59 Dose: 5,000 units Hydromorphone HCl (Dilaudid) 0.25 mg IVPUSH Q2H PRN PRN Reason: Breakthrough Pain Last Admin: 08/21/18 18:01 Dose: 0.25 mg Admin: 08/21/18 15:07 Dose: 0.25 mg Admin: 08/21/18 09:34 Dose: 0.25 mg Admin: 08/21/18 03:03 Dose: 0.25 mg Admin: 08/20/18 20:05 Dose: 0.25 mg Admin: 08/20/18 16:35 Dose: 0.25 mg Ibuprofen (Motrin) 600 mg PO Q6H PRN PRN Reason: Pain (moderate 4-6) Last Admin: 08/24/18 06:39 Dose: 600 mg Admin: 08/23/18 23:53 Dose: 600 mg Admin: 08/23/18 09:49 Dose: 600 mg Admin: 08/22/18 15:15 Dose: 600 mg Admin: 08/22/18 08:34 Dose: 600 mg Admin: 08/21/18 23:02 Dose: 600 mg Admin: 08/21/18 18:00 Dose: 600 mg Admin: 08/21/18 03:02 Dose: 600 mg Admin: 08/20/18 16:35 Dose: 600 mg Levothyroxine Sodium (Levothyroxine) 125 mcg PO ACBREAKFAST [facility] Last Admin: 08/24/18 06:38 Dose: 125 mcg Admin: 08/23/18 06:49 Dose: 125 mcg Admin: 08/22/18 05:07 Dose: 125 mcg Admin: 08/21/18 06:49 Dose: 125 mcg Losartan Potassium (Cozaar) 50 mg PO DAILY [facility] Last Admin: 08/23/18 08:07 Dose: 50 mg Admin: 08/22/18 08:33 Dose: 50 mg Admin: 08/21/18 09:33 Dose: 50 mg Ondansetron HCl (Zofran Odt) 4 mg PO Q6H PRN PRN Reason: nausea, able to take PO Last Admin: 08/20/18 16:35 Dose: 4 mg Polyethylene Glycol (Miralax) 17 gm PO BEDTIME PRN PRN Reason: Constipation Last Admin: 08/22/18 15:15 Dose: 17 gm - Assessment Assessment (Free Text/Narrative):: 78 y/o lady with right pneumothorax, now resolved. - Plan Plan (Free Text/Narrative):: - post-pull CXR reviewed- no evidence of PTX after removal of chest tube. - encourage IS to wean O2 - ambulate - continue regular diet - continue current pain regimen. - discharge home today Radha John MD General surgery
[2018-08-24] MEDS: Losartan 25 MG Tab PO SCH (08:50)
[2018-08-24] MEDS: Docusate Sodium 100 MG Cap PO SCH (08:50)
--- NOTE | 2018-08-24 09:01 | CR ---
Chest: Frontal view of the chest was obtained. Comparison: Previous chest x-ray performed earlier in the same day (7:39 AM) Findings: Very minimal apical pneumothorax is seen. This is felt to be stable. Right chest tube has been removed. Minimal atelectasis is seen within both lung bases. Nodules that were noted previously within the right lung base are not well seen on current exam. Left-sided infusion port is seen. Impression: 1. Minimal right apical pneumothorax. This is felt to be stable. Follow-up suggested in 24 hours to confirm continued stability or resolution. 2. Right chest tube has been removed in the interim from prior exam. 3. Mild bibasilar atelectasis. Diagnostic code #3
--- NOTE | 2018-08-25 13:16 | PCM.DCSUM1 ---
Discharge Summary - Hospital Course Free Text/Narrative:: Pt is a 78 y/o lady who had development of a right pneumothorax after placement of a subclavian portacath. She was transported via EMS to the ED where she had placement of a 28 [place] chest tube in the right chest. She had successful resolution of her pneumothorax with the chest tube. She was admitted to the [facility] floor where she was monitored. She had an air leak until hospital day 3 , which time the chest tube was placed to waterseal. After placement to waterseal. The patient did develop a very tiny apical pneumothorax, however, this was stable and the chest tube was removed on hospital day 4. The patient was discharged home with follow-up instructions. She will have chemotherapy arrangement per her oncologist. Diagnosis: Stroke: No Modified Cecil Scale: No Signif.Disability Despite Sympt.Able to Carry Out Usual Act./Duties Modified Gregory Scale Score: 1 - Discharge Data Discharge Date: 08/24/18 Discharge Disposition: Home, Self-Care 01 Condition: Good - Discharge Diagnosis/Problem(s) (1) Pneumothorax on right SNOMED Code(s): 644273668 ICD Code: J93.9 - PNEUMOTHORAX, UNSPECIFIED Status: Acute - Patient Summary/Data Operative Procedure(s) Performed: right tube thoracostomy - Patient Instructions Diet: Usual Diet as Tolerated Activity: As Tolerated, Cough & Deep Breathe, No Lifting Over 20 Pounds, No Strenuous Activities Showering/Bathing: No Tub Bathing/Swimming Wound/Incision Care: Keep Operative Site/Wound Site Clean and Dry Notify Provider of: Fever, Increased Pain, Swelling and Redness, Drainage, Nausea and/or Vomiting - Discharge Plan *PRESCRIPTION DRUG MONITORING PROGRAM REVIEWED*: Not Applicable *COPY OF PRESCRIPTION DRUG MONITORING REPORT IN PATIENT LINA: Not Applicable Home Medications: Home Meds Docusate Sodium 100 mg PO BID 08/20/18 [History] Levothyroxine 125 mcg PO ACBREAKFAST 08/20/18 [History] Losartan [Cozaar] 50 mg PO DAILY 08/20/18 [History] Patient Handouts: Implanted Port Insertion, Care After, Pneumothorax Referrals: Huber Charles MD [Primary Care Provider] - 08/28/18 9:30 am (Please follow up with Dr. Charles in [place] at [facility] on August at 0930. ) Elaine Mistry NP [Nurse Practitioner] - 09/07/18 10:20 am (Please follow up with Elaine Mistry NP at [facility] in [place] on Friday, September 07, 2018 at 10:20 AM. ) - Discharge Summary/Plan Comment DC Time >30 min.: No - Patient Data Vitals - Most Recent: Last Vital Signs Temp 36.2 C 08/24/18 11:28 Pulse 86 08/24/18 11:28 Resp 16 08/24/18 11:28 BP 118/75 08/24/18 11:28 Pulse Ox 97 08/24/18 11:28 Weight - Most Recent: 60.827 kg Med Orders - Current: Current Medications Discontinued Medications Acetaminophen (Tylenol) 650 mg PO Q4H PRN PRN Reason: Pain (Mild 1-3)/fever Hydrocodone Bitart/Acetaminophen ([place] 325-5 Mg) 1 tab PO Q4H PRN PRN Reason: Pain (severe 7-10) Last Admin: 08/24/18 03:36 Dose: 1 tab Docusate Sodium (Colace) 100 mg PO BID [facility] Last Admin: 08/24/18 08:50 Dose: 100 mg Fentanyl (Sublimaze) 25 mcg IVPUSH ONETIME ONE Stop: 08/20/18 15:33 Last Admin: 08/20/18 15:51 Dose: 25 mcg Fentanyl (Sublimaze) 25 mcg IVPUSH ONETIME ONE Stop: 08/20/18 15:35 Last Admin: 08/20/18 15:52 Dose: 25 mcg Fentanyl (Sublimaze) Confirm Administered Dose 100 mcg .ROUTE .STK-MED ONE Stop: 08/20/18 14:59 Last Admin: 08/21/18 07:54 Dose: Not Given Heparin Sodium (Porcine) (Heparin Sodium) 5,000 units SUBCUT Q8H [facility] Last Admin: 08/24/18 06:38 Dose: 5,000 units Hydromorphone HCl (Dilaudid) 0.25 mg IVPUSH Q2H PRN PRN Reason: Breakthrough Pain Last Admin: 08/21/18 18:01 Dose: 0.25 mg Sodium Chloride (Normal Saline) 1,000 mls @ 999 mls/hr IV ONETIME ONE Stop: 08/20/18 16:35 Last Admin: 08/20/18 15:52 Dose: 999 mls/hr Ibuprofen (Motrin) 600 mg PO Q6H PRN PRN Reason: Pain (moderate 4-6) Last Admin: 08/24/18 06:39 Dose: 600 mg Levothyroxine Sodium (Levothyroxine) 125 mcg PO ACBREAKFAST [facility] Last Admin: 08/24/18 06:38 Dose: 125 mcg Lidocaine HCl (Xylocaine 1%) Confirm Administered Dose 50 ml .ROUTE .STK-MED ONE Stop: 08/23/18 21:43 Last Admin: 08/23/18 22:14 Dose: Not Given Lidocaine/Epinephrine (Xylocaine 1% With Epinephrine 1:100,000) Confirm Administered Dose 40 ml .ROUTE .STK-MED ONE Stop: 08/20/18 15:07 Last Admin: 08/20/18 15:53 Dose: Not Given Lidocaine/Epinephrine (Xylocaine 1% With Epinephrine 1:100,000) 20 ml INJECT ONETIME ONE Stop: 08/20/18 15:36 Last Admin: 08/20/18 15:53 Dose: 20 ml Losartan Potassium (Cozaar) 50 mg PO DAILY [facility] Last Admin: 08/24/18 08:50 Dose: 50 mg Midazolam HCl (Versed 1 Mg/Ml) 1 mg IVPUSH ONETIME ONE Stop: 08/20/18 15:33 Last Admin: 08/20/18 15:50 Dose: 1 mg Midazolam HCl (Versed 1 Mg/Ml) 1 mg IVPUSH ONETIME ONE Stop: 08/20/18 15:35 Last Admin: 08/20/18 15:51 Dose: 1 mg Midazolam HCl (Versed 1 Mg/Ml) Confirm Administered Dose 6 mg .ROUTE .STK-MED ONE Stop: 08/20/18 14:59 Last Admin: 08/21/18 07:54 Dose: Not Given Ondansetron HCl (Zofran Odt) 4 mg PO Q6H PRN PRN Reason: nausea, able to take PO Last Admin: 08/20/18 16:35 Dose: 4 mg Polyethylene Glycol (Miralax) 17 gm PO BEDTIME PRN PRN Reason: Constipation Last Admin: 08/22/18 15:15 Dose: 17 gm
== END 2018-08-24 13:12 | disposition home or self-care (01) | DRG 200 ==
LOC: JD.ED 15:02 → JD.MS 16:08
PROVIDERS: ADMIT Surgery; ATTEND Surgery
PROC: 0W9930Z Drainage of Right Pleural Cavity with Drainage Device, Percutaneous Approach (ICD-10-PCS; principal; 2018-08-20)
DX: J95.811 Postprocedural pneumothorax (principal); C18.9 Malignant neoplasm of colon, unspecified; C78.7 Secondary malignant neoplasm of liver and intrahepatic bile duct; Y84.8 Other medical procedures as the cause of abnormal reaction of the patient, or of later complication, without mention of misadventure at the time of the procedure; I10 Essential (primary) hypertension; E03.9 Hypothyroidism, unspecified; Z79.899 Other long term (current) drug therapy; Z87.891 Personal history of nicotine dependence
CPT/HCPCS: 32551; 71045; 96361; 96374; 96375; 99285; J2250 ×2; J3010 ×2; J7040; 36415; 85025; 94760; A9270-GY; J1170; J1644